=== PATIENT | male | born 1980 | race African-American/Black ===

== ENCOUNTER 2020-05-08 13:17 | Emergency (ER) | payer MEDICAID ==
[~2020-05-08] VITALS: Ht 182.9 cm; Wt 80.5 kg
[2020-05-08 14:13] LABS: BASO % 0.4 % (0.0-1.0); EOS % 0.1 % (0.0-3.0); HEMATOCRIT 46.7 % (42.0-52.0); HEMOGLOBIN 16.3 g/dl (13.5-17.5); LYMPH # 2.1 10^3/uL (1.5-5.0); LYMPH % 19.9 % (24.0-44.0); MEAN CORPUSCULAR HEMOGLOBIN 32.9 pg (27.0-33.0); MEAN CORPUSCULAR HGB CONC 34.9 g/dl (32.0-36.5); MEAN CORPUSCULAR VOLUME 94.3 fl (80.0-96.0); MONO # 0.9 10^3/uL (0.0-0.8); MONO % 8.1 % (0.0-5.0); NEUTROPHILS # 7.7 10^3/uL (1.5-8.5); NEUTROPHILS % 71.1 % (36.0-66.0); PLATELET COUNT, AUTOMATED 171 10^3/uL (150-450); RED BLOOD COUNT 4.95 10^6/uL (4.30-6.10); WHITE BLOOD COUNT 10.8 10^3/uL (4.0-10.0)
[2020-05-08] MEDS ORDERED: ONDANSETRON 4MG/2ML VIAL IV ONE (14:15)
[2020-05-08] MEDS ORDERED: NS 1,000 ML IV ONE (14:15)
[2020-05-08 15:09] LABS: ALBUMIN 4.8 GM/DL (3.2-5.2); BILIRUBIN,DIRECT 0.1 MG/DL (0.0-0.2); BILIRUBIN,TOTAL 0.4 MG/DL (0.2-1.0); TOTAL PROTEIN 8.2 GM/DL (6.4-8.2)
[2020-05-08] MEDS ORDERED: GI COCKTAIL 50ML BTL(HYOSCYAMINE/MAALOX/LIDOCAINE VISCOUS)(1:3:1) PO ONE (15:15)
[2020-05-08] MEDS ORDERED: PEPC1TAB5 PO (16:13)
[2020-05-08] MEDS ORDERED: ONDA4TAB6 PO (16:13)
[2020-05-08] MEDS ORDERED: PROMETHAZINE INJ 25 MG/ML VIAL (J2550) IV ONE (16:30)
[2020-05-08 16:33] VITALS: BP 125/76
== END 2020-05-08 17:33 | disposition home or self-care (01) ==
LOC: M ED 13:17
DX: R10.9 Unspecified abdominal pain (principal); R11.2 Nausea with vomiting, unspecified; R94.5 Abnormal results of liver function studies; F17.200 Nicotine dependence, unspecified, uncomplicated
CPT/HCPCS: 80047; 80076; 81001; 83690; 85025; 96361; 96374; 96375; 99284; J2405

== ENCOUNTER 2022-10-28 10:46 | Emergency (ER) | payer OTHER ==
[~2022-10-28] VITALS: Ht 182.9 cm; Wt 86.4 kg
[~2022-10-28 10:46] MED LIST: ONDA4TAB6 PO; PEPC1TAB5 PO
[2022-10-28] MEDS ORDERED: KETOROLAC 30 MG/ML 1ML VIAL IV ONE (12:05)
[2022-10-28] MEDS ORDERED: NS 1,000 ML IV ONE (12:05)
[2022-10-28] MEDS ORDERED: methylPREDNISolone 125MG 2ML VIAL IV ONE (12:05)
[2022-10-28 12:31] LABS: BASO % 0.3 % (0.0-1.0); EOS # 0.2 10^3/uL (0.0-0.5); EOS % 2.2 % (0.0-3.0); HEMATOCRIT 47.4 % (42.0-52.0); HEMOGLOBIN 16.1 g/dl (13.5-17.5); LYMPH # 1.8 10^3/uL (1.5-5.0); LYMPH % 20.2 % (24.0-44.0); MEAN CORPUSCULAR HEMOGLOBIN 32.7 pg (27.0-33.0); MEAN CORPUSCULAR VOLUME 96.3 fl (80.0-96.0); MONO # 1.1 10^3/uL (0.0-0.8); MONO % 11.5 % (2.0-8.0); NEUTROPHILS % 65.6 % (36.0-66.0); PLATELET COUNT, AUTOMATED 164 10^3/uL (150-450); RED BLOOD COUNT 4.92 10^6/uL (4.30-6.10); WHITE BLOOD COUNT 9.1 10^3/uL (4.0-10.0)
[2022-10-28] MEDS ORDERED: ISOVUE-370 76% 100ML VIAL As Ordered ONE (12:31)
[2022-10-28 13:21] LABS: ERYTHROCYTE SEDIMENTATION RATE 22 mm/hr (0-15)
[2022-10-28] MEDS ORDERED: AMPICILLIN SOD/SULBACTAM SOD 3 GM in D5W MINI-BAG PLUS 100 ML IV ONE ×2 (13:35→19:35)
[2022-10-28] MEDS ORDERED: AMOX875T2 PO (17:53)
[2022-10-28] MEDS ORDERED: HYDR-3713 PO (17:53)
[2022-10-28] MEDS ORDERED: ONDANSETRON 4MG 2ML VIAL IV ONE (18:50)
[2022-10-28] MEDS ORDERED: MORPHINE 4 MG/ML 1ML VIAL IV ONE (18:50)
[2022-10-28 19:38] VITALS: BP 138/84
== END 2022-10-28 19:46 | disposition home or self-care (01) ==
LOC: M ED 10:46
DX: L03.211 Cellulitis of face (principal); K12.2 Cellulitis and abscess of mouth; M25.18 Fistula, other specified site; Z79.2 Long term (current) use of antibiotics; Z79.1 Long term (current) use of non-steroidal anti-inflammatories (NSAID)
CPT/HCPCS: 70491; 80047; 83605; 85025; 85652; 86140; 87040; 96361; 96365; 96375; 99284; J0295; J1885; J2405; J2930; Q9967